=== PATIENT | male | born 1955 | race African-American/Black ===

== ENCOUNTER 2025-01-18 06:49 | Emergency (ER) | payer MEDICARE, OTHER ==
[~2025-01-18] VITALS: Ht 185.4 cm; Wt 86.0 kg
[2025-01-18 07:09] VITALS: TEMP 99.1
[2025-01-18 07:25] LABS: COVID AG,FIA SOURCE NASAL SWAB
[2025-01-18 07:44] LABS: INFLUENZA TYPE A NEGATIVE FOR TYPE A (NEGATIVE); INFLUENZA TYPE B NEGATIVE FOR TYPE B (NEGATIVE); SARS-COV2 (COVID) ANTIGEN,FIA Negative (Negative)
[2025-01-18] MEDS: IPRATROPIUM BROMIDE 0.5 MG/2.5 ML NEB SOLUTION NEB ONE (08:24)
[2025-01-18] MEDS: ALBUTEROL SULFATE 2.5 MG/0.5 ML NEB SOLUTION NEB ONE (08:24)
[2025-01-18 08:25] VITALS: PULSE 71; RESP 20; O2SAT 92
[2025-01-18 08:37] VITALS: PULSE 77; RESP 20; O2SAT 99
[2025-01-18 08:41] VITALS: BP 137/99; PULSE 72; RESP 20; O2SAT 92
[2025-01-18] MEDS ORDERED: AZIT250T9 PO (09:00)
[2025-01-18] MEDS ORDERED: ALBU18HF12 IH (09:00)
[2025-01-18] MEDS: AZITHROMYCIN 500 MG TABLET PO ONE (09:10)
== END 2025-01-18 09:45 | disposition home or self-care (01) ==
LOC: EMS 06:55
DX: J18.0 Bronchopneumonia, unspecified organism (principal); F17.210 Nicotine dependence, cigarettes, uncomplicated; Z20.822 Contact with and (suspected) exposure to COVID-19
CPT/HCPCS: 99284; 71045; 87426; 87804; 94640; J0456; 94760; J7613